=== PATIENT | female | born 1990 | race Caucasian/White ===

== ENCOUNTER 2024-12-10 12:53 | Outpatient (REF) | payer BC, SELFPAY ==
--- NOTE | 2024-12-10 12:58 | EMG_ITS ---
Chief complaint: Bilateral numbness 4th and 5th digits Reason for referral: Evaluate for ulnar neuropathy versus cervical radiculopathy Referred by: Maximino YANG Procedure done: Bilateral upper extremities NCS/EMG Precautions and/or limitations: None The limb temperature was monitored continuously and remained between 32-36 degrees C during the performance of the NCS. Nerve Conduction Studies Anti Sensory Summary Table ?Stim Site NR Onset (ms) Norm Onset (ms) Peak (ms) Norm Peak (ms) O-P Amp (?V) Norm O-P Amp Site1 Site2 Delta-0 (ms) Dist (cm) Abdiaziz (m/s) Norm Abdiaziz (m/s) Left Median Anti Sensory (2nd Digit) Wrist ? 2.4 3.1 <3.6 94.4 >10 Wrist 2nd Digit 2.4 14.0 58 Right Median Anti Sensory (2nd Digit) Wrist ? 2.0 3.0 <3.6 98.0 >10 Wrist 2nd Digit 2.0 14.0 70 Right Radial Anti Sensory (Thumb) Forearm ? 1.3 2.0 <3.1 50.7 Forearm Thumb 1.3 0.0 Left Ulnar Anti Sensory (5th Digit) Wrist ? 1.9 2.8 <3.7 82.2 >15.0 Wrist 5th Digit 1.9 14.0 74 Right Ulnar Anti Sensory (5th Digit) Wrist ? 2.2 3.1 <3.7 64.2 >15.0 Wrist 5th Digit 2.2 14.0 64 Motor Summary Table ?Stim Site NR Onset (ms) Norm Onset (ms) O-P Amp (mV) Norm O-P Amp iAmp (mV) Amp (1st) (%) Site1 Site2 Delta-0 (ms) Dist (cm) Abdiaziz (m/s) Norm Abdiaziz (m/s) Left Median Motor (Abd Poll Brev) Wrist ? 3.1 <3.9 7.3 >4.5 8.8 100.0 Elbow Wrist 3.6 22.0 61 >45 Elbow ? 6.7 8.1 9.9 111.0 Right Median Motor (Abd Poll Brev) Wrist ? 2.8 <3.9 6.9 >4.5 8.8 100.0 Elbow Wrist 3.7 23.0 62 >45 Elbow ? 6.5 7.6 9.7 110.1 Left Ulnar Motor (Abd Dig Minimi) Wrist ? 2.8 <3.0 8.9 >5 11.4 100.0 B Elbow Wrist 3.2 20.0 63 >45 B Elbow ? 6.0 8.8 11.3 98.9 A Elbow B Elbow 1.5 10.0 67 >45 A Elbow ? 7.5 8.8 11.3 98.9 Right Ulnar Motor (Abd Dig Minimi) Wrist ? 2.7 <3.0 9.9 >5 12.7 100.0 B Elbow Wrist 3.2 21.0 66 >45 B Elbow ? 5.9 9.9 12.7 100.0 A Elbow B Elbow 1.3 10.0 77 >45 A Elbow ? 7.2 9.8 12.5 99.0 EMG ?Side Muscle Nerve Root Ins Act Fibs Psw Amp Dur Poly Recrt Int Pat Comment Right 1stDorInt Ulnar C8-T1 Nml Nml Nml Nml Nml 0 Nml Complete Right FlexCarRad Median C6-7 Nml Nml Nml Nml Nml 0 Nml Complete Right Biceps Musculocut C5-6 Nml Nml Nml Nml Nml 0 Nml Complete Right Triceps Radial C6-7-8 Nml Nml Nml Nml Nml 0 Nml Complete Right Deltoid Axillary C5-6 Nml Nml Nml Nml Nml 0 Nml Complete Left 1stDorInt Ulnar C8-T1 Nml Nml Nml Nml Nml 0 Nml Complete Left FlexCarRad Median C6-7 Nml Nml Nml Nml Nml 0 Nml Complete Left Biceps Musculocut C5-6 Nml Nml Nml Nml Nml 0 Nml Complete Left Triceps Radial C6-7-8 Nml Nml Nml Nml Nml 0 Nml Complete Left Deltoid Axillary C5-6 Nml Nml Nml Nml Nml 0 Nml Complete FINDINGS: All motor and sensory nerves tested showed normal latencies, amplitudes and conduction velocities. Concentric needle EMG was performed in selected muscles of the bilateral upper extremities. Study did not reveal signs of electric abnormalities as shown in the table above. IMPRESSION: 1. This is a normal study. 2. There is no electrodiagnostic evidence for median neuropathy, ulnar neuropathy, brachial plexopathy, or cervical radiculopathy. Thank you for your kind referral. Gay Perez MD, HENNA Board Certified, [place] [employer] and Rehabilitation (ABPMR) Board Certified, [place] Board of Electrodiagnostic Medicine (ABEM) CODIN [phone] KELVIN
--- OUTSIDE RECORDS SUMMARY | 2024-12-10 15:33 | XMS_ITS ---
Author Organization [facility] Address [address] [place] [address] Care Team Providers Care Routing Clerk Name Role Phone LAURA CLAY Unavailable [phone] REASON FOR VISIT Former Laura Patient Encounters Encounter Location Date Provider Diagnosis [facility] [address] [place] [phone] 04/27/2024 LAURA CLAY PLAN OF TREATMENT No Information Progress Notes * Robin CLARKB:1990 (34 yo F)Acc No.[id number]:04/27/2024 Patient:??Pari CLARK :1990?Age:34 Y?Sex:Fe male Address:[place] [address] * true * Date:??
--- OUTSIDE RECORDS SUMMARY | 2024-12-10 15:33 | XMS_ITS ---
Author Organization [facility] Address [address] [place] [address] Care Team Providers Care Education Administrative Assistant Name Role Phone INOCENCIO CLAY Unavailable [phone] REASON FOR VISIT No insurance coverage Encounters Encounter Location Date Provider Diagnosis [facility] [address] [place] [phone] 10/17/2023 INOCENCIO CLAY PLAN OF TREATMENT No Information Progress Notes * Vish CLARK:1990 (33 yo F)Acc No.[id number]:10/17/2023 Patient:??Pari CLARK :1990?Age:33 Y?Sex:Fe male Address:[place] [address] * true * Date:??
--- OUTSIDE RECORDS SUMMARY | 2024-12-10 15:33 | XMS_ITS | Continuity of Care Document ---
Author Organization [facility] Address [address] [place], [place] Phone [phone] Care Team Providers Care Steel Erector Apprentice Name Role Phone Nohemi Ray NP Care Team Information Recei fidelia Unavailable CONCEPCIÓN MAYA M.D. Care Team Information Rec eiver Unavailable Nohemi Ray NP Primary Care Physician Unav ailable Problems Active Problems Provider Date Malaise and fatigue Concepción Maya M.D. Onse t: 06/25/2017 Obesity Concepción Maya M.D. Onset: 0 06/25/2017 Social History Type Date Description Comments Sex Unknown Allergies and adverse reactions Description No Known Drug Allergies Medications Active Medications SIG Qnty Indications Ordering Provider Date Levothyroxine Rtbvyc69ezn Tablets 1/2 by mouth every day 15tabs Concepción Maya M.D. 05/12/2018 Contrave8-90mg Tablets ER 12HR 1 tablet a day for a week then 1 tablet bid. 60tabs Concepción Maya M.D. 04/03/2018 Fmemhnv313yaw Capsules 1/d Unknown Bupropion HCL ER (XL)150mg Tablets ER 24HR Take 3 Tablets By Mouth Every Morning Unknown Duloxetine MSJ43ch Caps DR Part 1 by mouth every day 90caps Unknown Levonorgestrel/Ethinyl Estradiol0.15-0.03mg Tablets Take 1 Tablet By Mouth Once A Day Unknown Ropinirole HCL(Requip)0.25mg Tablets Take 1 Tablet By Mouth AT Bedtime Unknown Yhmtrb-A24-167cw Tablets 1 by mouth every day Unknown History Medications Levothyroxine Fvyhha96hvz Tablets 1 by mouth every day 90tabs Concepción Maya M.D. 01/13/2018 - 03/28/2018 BD Pen Needle/Mini/Ultrafin e/31G X 3/16 31G X 5 mm Misc 1 unit every day 100units Concepción Maya M.D. 11/04/2017 - 03/28/2018 Xdmsjfw19lc/3ML Solution Pen-Inject inject 1.8 mg subcutaneous every day 18ml Concepción Maya M.D. 11/01/2017 - 03/28/2018 Metformin HCL DD834si Tablets ER 24HR 3 tab by mouth every day 90tabs E66.9 Concepción Maya M.D. 06/25/2017 - 12/24/2017 Ropinirole HCL0.25mg Tablets Unknown - 06/25/2017 Doxycycline Vrxpxcz204za Capsules Take One Capsule By Mouth Every 12 Hours For 14 Days Unknown - 06/25/2017 Doxycycline Bgoktoz269qf Tablets Take 1 Tablet By Mouth Twice A Day For 14 Days Unknown - 06/25/2017 Udcukejysbm0bx Tablets Dispers Dissolve 1 Tablet By Mouth Every 6 Hours as Needed For Nausea Unknown - 06/25/2017 Wfhgizjzbfza495xa Tablets Take 2 Tablets By Mouth Today, Then Take 1 Tablet Daily For 4 Days Unknown - 06/25/2017 Xihjlhx22be/3ML Solution Pen-Inject 1.2mg injection subcutaneous every day 5units Concepción Maya M.D. - 11/01/2017
--- OUTSIDE RECORDS SUMMARY | 2024-12-10 15:33 | XMS_ITS ---
Author Organization [facility] Address [address] [place] [address] Care Team Providers Care Office Machine Repair Shop Supervisor Name Role Phone INOCENCIO CLAY Unavailable [phone] Encounters Encounter Location Date Provider Diagnosis [facility] [address] [facility] [address] [place] [address] 11/28/2023 INOCENCIO CLAY PLAN OF TREATMENT No Information Progress Notes * Robin CLARKB:1990 (34 yo F)Acc No.[id number]:11/28/2023 Patient:??Pari CLARK Provider:??INOCENCIO CLAY NP :1990?Age:33 Y?Sex:Fe male Date:11/28/2023 [facility] Subjective: * Chief Complaints: * ? * Medical History:?? Objective: Assessment: Plan: * Treatment: * Images: Billing Information: * Visit Code:?? * Procedure Codes:?? * Sign off status: Pending * Provider:??INOCENCIO CLAY NP Date:??11/08
--- OUTSIDE RECORDS SUMMARY | 2024-12-10 15:34 | XMS_ITS | Patient Health Record ---
Author Organization [facility] Address [address] [place] [address] Care Team Providers Care Printing Pressman Name Role Phone INOCENCIO CLAY Unavailable [phone] ALLERGIES No Known Allergies REASON FOR REFERRAL No Information MEDICATIONS Medication SIG (Take, Route, Frequency, Duration) Notes Start Date End Date Status Amphetamine-Dextroamphet ER 5 MG TAKE 2 CAPSULES BY MOUTH DAILY Oral for 30 Days Active Lisinopril 10 MG TAKE 1 TABLET BY GIOVANA TH EVERY DAY Oral for 90 Days Activ e Adderall XR 5 MG TAKE 2 CAPSULES BY M OUTH DAILY Oral for 30 Days Active Modafinil 200 MG TAKE 1 TABLET BY GIOVANA TH TWICE A DAY Oral for 30 Days Active buPROPion HCl ER (XL) 150 MG TAKE 1 TABLET BY MOUTH THREE TIMES A DAY Oral for 90 Days Active DULoxetine HCl 60 MG TAKE 1 CAPSULE BY M OUTH EVERY DAY Oral for 90 Days Activ e Mounjaro 2.5 MG/0.5ML 2.5mg Subcutaneous weekly for 30 days Active Semaglutide-Weight Management 1.7 MG/0.75ML 0.75 mL Subcutaneous Active SOCIAL HISTORY Tobacco Use: Social History Observation Description Date Details (start date - stop date) Never Smoker NA - NA Sex Assigned At : Social History Observation Description Sex Assigned At Unknown Tobacco Use/Smoking Question Answer Notes Are you a nonsmoker PROBLEMS Problem Type ICD Code Onset Dates Problem Status W/U Status Risk SNOMED Code Notes Problem Essential (primary) hypertension (I10) Active confirmed 80255823 Problem Morbid obesity (E66.01) Active confirmed 010752123 Problem Attention deficit hyperactivity disorder (ADHD), unspecified ADHD type (F90.9) Active confirmed 850063175 Problem BMI 40.0-44.9, adult (Z68.41) Active confirmed 505763405 Problem BMI 45.0-49.9, adult (Z68.42) Active confirmed 959853584 Problem Depression with anxiety (F41.8) Active confirmed 331862460 Problem 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 [address] [place] [address] [id number] Pari Clark Self - patient is the insured MEDICATIONS ADMINISTERED Medication Instructions Date of Administration Dosage Notes Semaglutide 08/27/2023 Semaglutide 09/02/2023 Semaglutide 09/09/2023 0.50 mL RLQ Semaglutide 09/17/2023 0.5 mL Semaglutide 09/23/2023 Semaglutide 10/01/2023 Semaglutide 10/08/2023 1.5 mL
== END 2024-12-10 12:54 | disposition home or self-care (01) ==
LOC: HO.NEURO 12:53
PROVIDERS: PCP Nurse Practitioner Family; Visit Provider Physician Assistant
DX: M54.2 Cervicalgia (principal); M54.12 Radiculopathy, cervical region
CPT/HCPCS: 95886; 95911

== ENCOUNTER → 2024-12-10 12:58 | Outpatient (BNV) | payer BC, SELFPAY | PROVIDERS: PCP Nurse Practitioner Family; Visit Provider Physical Medicine & Rehabilitation | DX: R20.0 Anesthesia of skin (principal); R20.2 Paresthesia of skin | CPT/HCPCS: 95886; 95911 ==